=== PATIENT | female | born 1990 | race African-American/Black ===

== ENCOUNTER 2018-03-27 17:35 | Emergency (ER) | payer OTHER ==
[2018-03-27 17:59] VITALS: BP 120/84
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
[2018-03-27] MEDS ORDERED: Acetaminophen/HYDROcodone 325-5 MG Tab PO ONE (19:30)
--- NOTE | 2018-03-27 20:00 | CT ---
Head CT Technique: Multiple axial sections through the brain were obtained. Intravenous contrast was not utilized. Comparison: No previous intracranial imaging. Findings: Ventricles along with basal cisterns and sulci over the convexities are within normal limits for the patient's age. No abnormal parenchymal densities are seen. No evidence of intracranial hemorrhage. No midline shift or mass effect is seen. Bone window settings were reviewed which shows no acute calvarial abnormality. Visualized sinuses are clear. Impression: 1. No abnormality is identified on noncontrast head CT study. Diagnostic code #1
--- NOTE | 2018-03-27 20:02 | CT ---
CT cervical spine Technique: Multiple axial sections were obtained from above C1 inferiorly to the mid T2 level. Reconstructed sagittal and coronal images were reviewed. Findings: Multiple surgical clips are seen within the neck. Kyphosis noted on the reconstructed sagittal views. Vertebral bodies and posterior arches are intact with no fracture being seen. No bony central or bony neural foraminal stenosis is seen. Impression: 1. Kyphosis which is most likely positional. 2. Surgical clips within the neck. 3. No acute fracture or abnormal subluxation is seen. Diagnostic code #2
--- NOTE | 2018-03-28 07:17 | CR ---
Left elbow: Four views of left elbow were obtained. Comparison: No prior study. Joint spaces are preserved. No joint effusion is seen. No fracture, dislocation or other bony abnormality is seen. Impression: 1. No abnormality is identified on left elbow study. Diagnostic code #1
== END 2018-03-27 19:55 | disposition home or self-care (01) ==
LOC: JD.ED 17:35
DX: S16.1XXA Strain of muscle, fascia and tendon at neck level, initial encounter (principal); S50.02XA Contusion of left elbow, initial encounter; R51 Headache; V43.92XA Unspecified car occupant injured in collision with other type car in traffic accident, initial encounter
CPT/HCPCS: 70450; 72125; 73080; 99284; A9270; 99283

== ENCOUNTER 2018-03-28 11:06 | Emergency (ER) | payer OTHER ==
[2018-03-28 11:19] VITALS: BP 121/82
[2018-03-28] MEDS ORDERED: Ketorolac 60 MG/2 ML SDV IM ONE (11:46)
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
--- NOTE | 2018-03-28 13:17 | CR ---
Chest: Two views of the chest were obtained. Comparison: Prior chest x-ray of 02/14/16. Heart size is slightly generous which is a stable finding from prior exam. Lungs are clear. Bony structures are unremarkable. Multiple surgical clips are seen within the base of the neck. No retrosternal soft tissue swelling is seen. Impression: 1. Nothing acute is seen on frontal chest x-ray. Diagnostic code #2
== END 2018-03-28 12:35 | disposition home or self-care (01) ==
LOC: JD.ED 11:06
DX: F41.9 Anxiety disorder, unspecified (principal); Z79.82 Long term (current) use of aspirin; Z79.899 Other long term (current) drug therapy; V89.2XXA Person injured in unspecified motor-vehicle accident, traffic, initial encounter
CPT/HCPCS: 71046; 96372; 99283; J1885